=== PATIENT | male | born 1950 | race Caucasian/White ===

== ENCOUNTER 2017-07-31 20:36 | Emergency (ER) | payer OTHER ==
[2017-07-31 20:44] VITALS: BP 147/93; PULSE 56; TEMP 97.7; BMI 31.4
--- NOTE | 2017-07-31 21:01 | PDOC ---
History of Present Illness - General Chief Complaint: Pain, Acute Stated Complaint: PULLED OUT LOWER BACK Time Seen by Provider: 07/31/17 20:38 - History of Present Illness Initial Comments: This 67-year-old man with a history of hypertension well-controlled on medication presents with a one-day history of right lower back pain. Patient has a history of this in the past when he " moves the wrong way". Earlier today , he lifted his right leg as he was in seated position and he began to have pain in the same area of lower back as previously. There is no radiation into the buttock or leg. He denies paresthesias/numbness or weakness in his right leg. No groin numbness or difficulty with urination/defecation. Patient has not taken any oral [id number] medication for this, using topical medications on the area. Past History - Past Medical History Allergies/Adverse Reactions: Allergies Allergy/AdvReac Type Severity Reaction Status Date / Time No Known Allergies Allergy Verified 07/31/17 20:37 Home Medications: Ambulatory Orders Diclofenac Sodium [Voltaren -] 75 mg PO BID PRN #20 tablet. 07/31/17 COPD: No HTN: Yes - Suicide/Smoking/Psychosocial Hx Smoking Status: No Smoking History: Never smoked Have you smoked in the past 12 months: No Number of Cigarettes Smoked Daily: 0 Information on smoking cessation initiated: No Hx Alcohol Use: No Drug/Substance Use Hx: No Substance Use Type: None *Physical Exam - Vital Signs Last Vital Signs Temp Pulse Resp BP Pulse Ox 97.7 F 56 L 16 147/93 100 07/31/17 20:39 07/31/17 20:39 07/31/17 20:39 07/31/17 20:39 07/31/17 20:39 - Physical Exam Comments: GENERAL: Adult male, alert and oriented 3, in no acute distress HEAD: Normal with no signs of trauma. EYES: PERRLA, EOMI, sclera anicteric, conjunctiva clear. ENT: Ears normal, nares patent, oropharynx clear without exudates. Moist mucous membranes. NECK: Normal range of motion, supple without lymphadenopathy, JVD, or masses. LUNGS: Breath sounds equal, clear to auscultation bilaterally. No wheezes, and no crackles. HEART:Regular rate and rhythm, normal S1 and S2 without murmur, rub or gallop. ABDOMEN:.normal bowel sounds No guarding,tenderness or rebound.No masses No distention. EXTREMITIES: Normal range of motion, no edema. No clubbing or cyanosis. No erythema, or tenderness. NEUROLOGICAL: Cranial nerves II through XII grossly intact. Normal speech. No focal neurological deficits. MUSCULOSKELETAL: Back non-tender to palpation, no CVA tenderness SKIN: Warm, Dry, normal turgor, no rashes or lesions noted. *DC/Admit/Observation/Transfer Diagnosis at time of Disposition: Acute low back pain Qualifiers: Back pain laterality: right Sciatica presence: without sciatica Qualified Code( s): M54.5 - Low back pain - Discharge Dispostion Disposition: HOME Condition at time of disposition: Stable - Prescriptions Prescriptions: Diclofenac Sodium [Voltaren -] 75 mg PO BID PRN #20 tablet.dr HAGAN Reason: Back Pain - Referrals Referrals: Gerber Whatley MD [Staff Physician] - - Patient Instructions Printed Discharge Instructions: Low Back Pain Additional Instructions: Avoid strenuous exercise involving lower back for the next several days Diclofenac 75 mg twice a day (take with food) as needed for back pain Follow-up with within 3-4 days Return to ER if you have lower leg pain/numbness/weakness - Post Discharge Activity
[2017-07-31] MEDS ORDERED: KETOROLAC TROMETHAMINE 60 MG/2 ML VIAL IM ONE (21:55)
[2017-07-31] MEDS ORDERED: KETOROLAC TROMETHAMINE 60 MG/2 ML VIAL ONE (22:17)
== END 2017-07-31 22:32 | disposition home or self-care (01) ==
LOC: FER 20:36
PROC: 3E0233Z Introduction of Anti-inflammatory into Muscle, Percutaneous Approach (ICD-10-PCS; principal; 2017-07-31)
DX: M54.5 Low back pain (principal); I10 Essential (primary) hypertension
CPT/HCPCS: 99281-25

== ENCOUNTER 2018-08-11 13:40 | Emergency (ER) | payer OTHER ==
[2018-08-11 13:58] VITALS: BP 130/87; PULSE 51; TEMP 98.7; BMI 31.7
--- NOTE | 2018-08-11 14:17 | PDOC ---
History of Present Illness - General Chief Complaint: Back Pain Stated Complaint: LOW BACK PAIN Time Seen by Provider: 08/11/18 14:02 History Source: Patient Exam Limitations: No Limitations - History of Present Illness Initial Comments: 08/11/18 14:07 68 yo M presenting to the ER with a complaint of back pain Pt has a h/o HTN for which he takes Pt reports that 2 days ago, he lifted something heavy and immediately noted back pain Since then he has noted persistent lower back pain - midline and paraspinal No fevers, chills, night sweats No radicular pain No lower extremity weakness Denies h/o cancer Denies bowel or bladder incontinence PMH: HTN PSH: denies MEDS: Amlodipine 2.5mg po daily ALL: NKDA SOCIAL: denies alcohol, drug, cigarette use ROS: GENERAL/CONSTITUTIONAL: No: fever, chills, weakness HEAD, EYES, EARS, NOSE AND THROAT: No: change in vision CARDIOVASCULAR: No: chest pain, lightheadedness RESPIRATORY: No: cough, shortness of breath, wheezing GASTROINTESTINAL: No: nausea, vomiting, abdominal pain GENITOURINARY: No: dysuria, hematuria, frequency, urgency, flank pain. MUSCULOSKELETAL: Yes: midline back pain No: neck pain, joint pain, muscle swelling or pain SKIN: No: lesions, pallor, rash NEUROLOGIC: No: headache, vertigo, paresthesias, weakness PE: GENERAL: The patient is in no acute distress. HEAD: Normal with no signs of trauma. EYES: PERRLA, EOMI, sclera anicteric, conjunctiva clear. ENT: Ears normal, nares patent, oropharynx clear without exudates. Moist mucous membranes. NECK: Normal range of motion, supple without midline tenderness LUNGS: Breath sounds equal, clear to auscultation bilaterally. No wheezes, and no crackles. HEART:Regular rate and rhythm, normal S1 and S2 without murmur, rub or gallop. ABDOMEN: Soft, nontender, normoactive bowel sounds. No guarding, no rebound. No distention, no pulsatile masses noted EXTREMITIES: Normal range of motion, no edema. NEUROLOGICAL: Cranial nerves II through XII grossly intact. Normal speech. No focal neurological deficits. MUSCULOSKELETAL: Midline lumbar tenderness, paraspinal tenderness to palpation Pt is able to bend forward, ambulatory with a steady, non antalgiac gait (+) straight leg raise Flexion at the hip, knee nml Extension at the hip and knee nml Dorsi and plantar flexion in tact Sensation intact SKIN: Warm, Dry, normal turgor, no rashes or lesions noted. 08/11/18 14:26 08/11/18 14:27 Past History - Past Medical History Allergies/Adverse Reactions: Allergies Allergy/AdvReac Type Severity Reaction Status Date / Time No Known Allergies Allergy Verified 08/11/18 13:53 Home Medications: Ambulatory Orders Amlodipine Besylate 2.5 mg PO DAILY 08/11/18 Methocarbamol [Robaxin -] 500 mg PO TID PRN #21 tablet 08/11/18 Naproxen [Naprosyn -] 500 mg PO BID PRN #14 tablet 08/11/18 COPD: No HTN: Yes - Suicide/Smoking/Psychosocial Hx Smoking Status: No Smoking History: Never smoked Have you smoked in the past 12 months: No Number of Cigarettes Smoked Daily: 0 Hx Alcohol Use: No Drug/Substance Use Hx: No Substance Use Type: None *Physical Exam - Vital Signs Last Vital Signs Temp Pulse Resp BP Pulse Ox 98.7 F 51 L 16 130/87 98 08/11/18 13:48 08/11/18 13:48 08/11/18 13:48 08/11/18 13:48 08/11/18 13:48 Moderate Sedation - Procedure Monitoring Vital Signs: Procedure Monitoring Vital Signs Temperature 98.7 F 08/11/18 13:48 Pulse Rate 51 L 08/11/18 13:48 Respiratory Rate 16 08/11/18 13:48 Blood Pressure 130/87 08/11/18 13:48 O2 Sat by Pulse Oximetry (%) 98 08/11/18 13:48 Medical Decision Making - Medical Decision Making 08/11/18 14:31 Pt presents which what appears to be musculoskeletal back pain Pt has no high risk factors - IVDU, Fevers, Gross hematuria, abdominal pain, trauma, h/o cancer Pt is tender in the midline lower back (just above the sacrum) and in the para spinal muscles Pt states this has happened to him in the past We have discussed my concern for aortic pathology (pt not previously imaged) Pt would like to be discharged to home I have asked this patient to follow up with Dr Whatley within 1 week for further imaging *DC/Admit/Observation/Transfer Diagnosis at time of Disposition: Acute low back pain Qualifiers: Back pain laterality: bilateral Sciatica presence: without sciatica Qualified Code(s): M54.5 - Low back pain - Discharge Dispostion Disposition: HOME Condition at time of disposition: Stable Decision to Admit order: No - Referrals Referrals: Gerber Whatley MD [Primary Care Provider] - - Patient Instructions Printed Discharge Instructions: DI for Low Back Pain, Low Back Pain, Back Pain (Alternative Therapy) Additional Instructions: Thank you for coming in to the ER today Return to the emergency department immediately with ANY new, persistent or worsening symptoms. Please AVOID lifting heavy objects Continue any medications as previously prescribed by your physician. Please take medications as prescribed. You should follow up with your primary doctor as soon as possible regarding today's emergency department visit. Please make sure your doctor reviews the results of your emergency evaluation. Thank you for coming to the [facility] today for your care. It was a pleasure to see you today. Please note that your evaluation is INCOMPLETE until you follow-up with your doctor. - Post Discharge Activity
[2018-08-11] MEDS ORDERED: KETOROLAC TROMETHAMINE 30 MG/1 ML VIAL IM ONE (14:19)
[2018-08-11] MEDS ORDERED: KETOROLAC TROMETHAMINE 30 MG/1 ML VIAL ONE (14:28)
== END 2018-08-11 14:50 | disposition home or self-care (01) ==
LOC: FER 13:40
PROC: 3E0233Z Introduction of Anti-inflammatory into Muscle, Percutaneous Approach (ICD-10-PCS; principal; 2018-08-11)
DX: M54.5 Low back pain (principal); I10 Essential (primary) hypertension
CPT/HCPCS: 99282-25

== ENCOUNTER 2019-02-21 19:51 | Emergency (ER) | payer OTHER ==
[2019-02-21 20:02] VITALS: BP 114/72; PULSE 52; TEMP 98.5; BMI 31.4
[2019-02-21] MEDS ORDERED: KETOROLAC TROMETHAMINE 60 MG/2 ML VIAL IM ONE (20:31)
[2019-02-21] MEDS ORDERED: KETOROLAC TROMETHAMINE 60 MG/2 ML VIAL ONE (20:35)
[2019-02-21] MEDS ORDERED: ERYTHROMYCIN 0.5% OPHTHALMIC OINTMENT 3.5 GM TUBE OD ONE (20:35)
[2019-02-21] MEDS ORDERED: ERYTHROMYCIN 0.5% OPHTHALMIC OINTMENT 3.5 GM TUBE ONE (20:39)
--- NOTE | 2019-02-21 20:40 | PDOC ---
Documentation entered by Lai Lopes SCRIBE, acting as scribe for Jil Fernandez MD. Jil Fernandez MD: This documentation has been prepared by the Moses schmidt Aiswarya, SCRIBE, under my direction and personally reviewed by me in its entirety. I confirm that the documentation accurately reflects all work, treatment, procedures, and medical decision making performed by me. History of Present Illness - General Chief Complaint: Back Pain Stated Complaint: BACK PAIN Time Seen by Provider: 02/21/19 20:14 History Source: Patient Exam Limitations: No Limitations - History of Present Illness Initial Comments: 02/21/19 20:35 The patient is a 69 year old male, with a significant PMH of HTN, who presents to the emergency department with back pain that began 6 days ago. The patient states constant non radiating pain began after taking out the trash a few days ago. Patient states pain progressively worsened today , no relief with ice. Patient denies any numbness or tingling. Denies any shooting pain of the lower extremities. Denies any other injuries. Denies any fall. Denies chest pain, shortness of breath, headache and dizziness. PAST MEDICAL HISTORY: no significant history PAST SURGICAL HISTORY: no significant history FAMILY HISTORY: no pertinent history SOCIAL HISTORY: Pt lives with family and is employed. MEDICATIONS: reviewed ALLERGIES: As per nursing notes Adult ROS General: No fevers or chills, no weakness, no weight loss HEENT: No change in vision. No sore throat,. No ear pain CardioVascular: No chest pain or shortness of breath Respiratory:No cough, or wheezing. Gastrointestinal: no nausea, vomiting, diarrhea or constipation, No rectal bleeding Genitourinary: No dysuria, hematuria, or frequency Musculoskeletal:+Back pain. Neurologic: No headache, vertigo, dizziness or loss of consciousness Psychiatric: nor depression Skin: No rashes or easy bruising Endocrine: no increased thirst or abnormal weight change Allergic: no skin or latex allergy All other systems reviewed and normal Basic PE GENERAL: The patient is awake, alert, and fully oriented, in no acute distress. HEAD: Normal with no signs of trauma. EYES: Pupils equal, round and reactive to light, extraocular movements intact, sclera anicteric, conjunctiva clear. EXTREMITIES: +Tenderness on palpation right lateral upper paraspinal lumbar area. No tenderness to the lumbar sacral spine. Normal range of motion, no edema. NEUROLOGICAL: Normal speech, normal gait. PSYCH: Normal mood, normal affect. SKIN: Warm, Dry, normal turgor, no rashes or lesions noted. Assessment and plan: This is a 69-year-old male who comes in complaining of low back pain. Patient has history of low back pain in the past. Patient denies any radiation or any other associated symptoms numbness weakness or neurological complaints. Patient did have some tenderness of paraspinal spasm of his lower lumbar right area. There was no tenderness over the sciatic notch. Patient given Toradol and a prescription for naproxen sent to his pharmacy. Patient has a primary care doctor he can follow-up with. 02/21/19 20:40 Past History - Past Medical History Allergies/Adverse Reactions: Allergies Allergy/AdvReac Type Severity Reaction Status Date / Time No Known Allergies Allergy Verified 02/21/19 19:58 Home Medications: Ambulatory Orders Amlodipine Besylate 2.5 mg PO DAILY 08/11/18 Naproxen 500 mg PO BID #20 tablet 02/21/19 COPD: No HTN: Yes - Suicide/Smoking/Psychosocial Hx Smoking Status: No Smoking History: Never smoked Have you smoked in the past 12 months: No Number of Cigarettes Smoked Daily: 0 Hx Alcohol Use: No Drug/Substance Use Hx: No Substance Use Type: None *Physical Exam - Vital Signs Last Vital Signs Temp Pulse Resp BP Pulse Ox 98.5 F 52 L 16 114/72 97 02/21/19 19:57 02/21/19 19:57 02/21/19 19:57 02/21/19 19:57 02/21/19 19:57 *DC/Admit/Observation/Transfer Diagnosis at time of Disposition: Low back pain Qualifiers: Chronicity: acute Back pain laterality: right Sciatica presence: without sciatica Qualified Code(s): M54.5 - Low back pain Hordeolum Qualifiers: Hordeolum type: internum Laterality: right Eyelid: lower Qualified Code(s): H00.022 - Hordeolum internum right lower eyelid - Discharge Dispostion Disposition: HOME Condition at time of disposition: Good Decision to Admit order: No - Prescriptions Prescriptions: Naproxen 500 mg PO BID #20 tablet - Referrals Referrals: Gerber Whatley MD [Primary Care Provider] - - Patient Instructions Printed Discharge Instructions: DI for Blepharitis Additional Instructions: If you need some additional medication beyond the shot that we gave you get the prescription filled at the pharmacy and take one tablet twice a day with food don't take on an empty stomach. For the stye place 1/2 inch ribbon of the antibiotic ointment in the lower lid twice a day for 7 days. Return to the emergency department immediately with ANY new, persistent or worsening symptoms. Continue any medications as previously prescribed by your physician. You should follow up with your primary doctor as soon as possible regarding today's emergency department visit. . Please make sure your doctor reviews the results of your emergency evaluation. Thank you for coming to the Emergency Department today for your care. It was a pleasure to see you today. Please note that your evaluation is INCOMPLETE until you follow-up with your doctor. - Post Discharge Activity
== END 2019-02-21 20:47 | disposition home or self-care (01) ==
LOC: FER 19:51
PROC: 3E0233Z Introduction of Anti-inflammatory into Muscle, Percutaneous Approach (ICD-10-PCS; principal; 2019-02-21)
DX: M54.5 Low back pain (principal); H00.022 Hordeolum internum right lower eyelid; I10 Essential (primary) hypertension
CPT/HCPCS: 99282-25

== ENCOUNTER 2020-02-07 04:48 | Inpatient (IN) | payer OTHER ==
[2020-02-06 12:28] VITALS: BMI 27.8
[2020-02-07] MEDS ORDERED: MIDAZOLAM HCL 2 MG/2 ML SINGLE DOSE VIAL ONE ×2 (10:26→12:42)
[2020-02-07] MEDS ORDERED: PROPOFOL 20 ML ONE (10:26)
[2020-02-07] MEDS ORDERED: ceFAZolin SODIUM 1 GM VIAL IVPB ONE (11:07)
[2020-02-07] MEDS ORDERED: ceFAZolin SODIUM 1 GM VIAL ONE (11:11)
[2020-02-07] MEDS ORDERED: ONDANSETRON 4 MG/2 ML VIAL IVPUSH PRN (11:36)
[2020-02-07] MEDS ORDERED: oxyCODONE HCL 5 MG TABLET PO PRN (11:36)
[2020-02-07] MEDS ORDERED: LACTATED RINGERS SOLUTION 1,000 ML IV SCH (11:45)
[2020-02-07] MEDS ORDERED: DEXAMETHASONE SOD PHOSPHATE 4 MG/1 ML VIAL ONE (12:11)
[2020-02-07] MEDS ORDERED: ACETAMINOPHEN 325 MG TABLET (FP) PO PRN (12:37)
[2020-02-07] MEDS ORDERED: HYDROmorphone HCl 2 MG/ML VIAL IM ONE (12:37)
[2020-02-07] MEDS ORDERED: TAMSULOSIN HCL 0.4 MG CAP PO ONE (12:37)
--- NOTE | 2020-02-07 12:41 | PREOP ---
DATE OF ADMISSION: 02/07/2020 DATE OF DICTATION: 02/07/2020 Patient is a 70-year-old male diagnosed with a Judith 8 carcinoma of the prostate. Also has history of prostatism, including frequency, urgency, and nocturia. Cystoscopy in the office revealed bilobar hypertrophy of the prostate with a large bladder stone. He does have history of high blood pressure. PHYSICAL EXAMINATION: Revealed a soft abdomen. There is no CVA tenderness. Prostate is 3+, firm, and nontender. Extremities show full range of motion with no cyanosis, clubbing, or edema. IMPRESSION: At present is benign prostatic hypertrophy with lower urinary tract infection, history of carcinoma of the prostate, bladder stone. PLAN: For a TURP, a cystolithotripsy, followed by external beam radiation therapy. LORNE FRASER M.D. [id number]
--- NOTE | 2020-02-07 12:43 | OP ---
Operative Note - Note: Operative Date: 02/07/20 Pre-Operative Diagnosis: bladder stone, bph with luts and Operation: cystilithotripsy and turp Findings: 2cm. bladder stone, bph with obstruction Post-Operative Diagnosis: Same as Pre-op Surgeon: Dany Whatley Anesthesia: General Specimens Removed: prostate tissue, stones ,prostate Estimated Blood Loss (mls): 0 Instrument used (Debridements only): 0 Drains & Tubes with Location: 24f 30cc 3-way daniel with cbi Drains, Volume Out (mls): 0 Blood Volume Replaced (mls): 0 Fluid Volume Replaced (mls): 0 Operative Report Dictated: Yes
[2020-02-07] MEDS: DEXTROSE 5%-0.45% SALINE 1,000 ML IV SCH (16:30)
--- NOTE | 2020-02-07 17:05 | PATH ---
Cytology Non-Gynecological Report Patient Name: MIKE BOSS [facility]. Rec. #: [id number] /Age/Gender: 1950 (Age: 70) / M Account: [id number] Location: AMBULATORY SURG Taken: 02/07/2020 Received: 02/07/2020 Reported: 02/07/2020 Physicians: Dany Whatley M.D. Specimen(s) Received URINE Clinical History Bladder stones Final Diagnosis URINE FOR CYTOLOGY: SATISFACTORY FOR EVALUATION. NEGATIVE FOR HIGH GRADE UROTHELIAL CARCINOMA. SCATTERED UROTHELIAL CELLS AND FEW UROTHELIAL FRAGMENTS PRESENT. Comment: Urothelial fragments are suggestive of prior instrumentation, lithiasis, or a low grade papillary neoplasm. Suggest clinical/radiologic correlation. Electronically Signed Livier Damon M.D. Gross Description Approximately 30 cc of cloudy bloody fluid received fresh. One cytofunnel prepared and Pap stained.
--- NOTE | 2020-02-07 18:32 | OP ---
DATE OF OPERATION: DATE OF DICTATION: 02/07/2020 HISTORY OF PRESENT ILLNESS: The patient is a 70-year-old male with history of recurrent urinary retention and obstructive uropathy status post cystoscopy, found to have a large bladder stone with trilobar hypertrophy of the prostate. PREOPERATIVE DIAGNOSIS: Bladder stone and trilobar hypertrophy of the prostate. POSTOPERATIVE DIAGNOSIS: Bladder stone and trilobar hypertrophy of the prostate. OPERATIVE PROCEDURE: Cystourethroscopy, cysto laser lithotripsy, transurethral resection of prostate and transurethral vaporization of prostate. ANESTHESIA: General. BLOOD LOSS: 100 mL. DESCRIPTION OF PROCEDURE: Under above stated anesthesia, patient was prepped and draped in the usual sterile manner, placed in the dorsal lithotomy position. A Barney catheter which was in place was removed. Cystoscopy revealed trilobar hypertrophy of the prostate. There was lateral lobe kissing. The bladder was entered. There was a grade 3 trabeculation. A 2-cm stone was seen in the bladder. Therefore 1000 holmium fiber at an energy of 1 and a rate of 12 was used to fragment the stone. A Ellik evacuator was used to get rid of all the fragments. Afterwards, resection of the prostate was commenced in the usual fashion. Hemostasis was secured with electrocoagulation. Prostate chips were evacuated with an Ellik evacuator. No active bleeding was noted. The VaporTrode was introduced, and excess tissue was vaporized. Due to the large prostate and the bleeding, a 3-way Barney with bladder irrigation was commenced. The patient tolerated the procedure well. He returned to the recovery room in stable condition. Jennifer [id number]
[2020-02-07] MEDS: CEPHALEXIN MONOHYDRATE 500 MG CAPSULE (UD) PO SCH (21:52)
[2020-02-08] MEDS: CEPHALEXIN MONOHYDRATE 500 MG CAPSULE (UD) PO SCH ×3 (05:22→21:24)
[2020-02-08] MEDS ORDERED: PT OWN MED DRAWER 7, Y5N ONE (10:13)
[2020-02-08] MEDS: TAMSULOSIN HCL 0.4 MG CAP PO SCH (10:16)
[2020-02-08] MEDS: DEXTROSE 5%-0.45% SALINE 1,000 ML IV SCH (14:01)
[2020-02-09] MEDS: DEXTROSE 5%-0.45% SALINE 1,000 ML IV SCH ×2 (00:03→15:59)
[2020-02-09] MEDS: CEPHALEXIN MONOHYDRATE 500 MG CAPSULE (UD) PO SCH ×3 (06:37→21:38)
[2020-02-09 08:22] LABS: HEMATOCRIT 34.2 % (35.4-49); HEMOGLOBIN 11.7 GM/dL (11.7-16.9); MCH 32.3 pg (25.7-33.7); MCHC 34.3 g/dl (32.0-35.9); MEAN CELL VOLUME 94.1 fl (80-96); PLATELET COUNT 242 K/MM3 (134-434); RBC 3.63 M/mm3 (4.00-5.60); RDW 13.4 % (11.9-15.9); WHITE BLOOD COUNT 10.2 K/mm3 (4.0-10.0)
[2020-02-09 08:39] LABS: ALBUMIN 2.6 g/dl (3.4-5.0); BILIRUBIN,TOTAL 0.6 mg/dL (0.2-1); BLOOD UREA NITROGEN 12.6 mg/dL (7-18); CALCIUM 7.8 mg/dL (8.5-10.1); CREATININE 0.8 mg/dL (0.55-1.3); POTASSIUM 3.3 mmol/L (3.5-5.1)
[2020-02-09 08:40] LABS: TOT PROT 5.6 g/dl (6.4-8.2)
[2020-02-09] MEDS: TAMSULOSIN HCL 0.4 MG CAP PO SCH (12:37)
--- NOTE | 2020-02-09 20:09 | PN ---
Progress Note (short form) - Note Progress Note: UROLOGY NOTE. POD#3 S/P TURP/TUVP, SPENCER WITH CBI IS CLEAR,NO CLOTS. PLAN-D/C CBI IN AM AND ATTACH SPENCER TO LEG BAG.
[2020-02-10] MEDS: CEPHALEXIN MONOHYDRATE 500 MG CAPSULE (UD) PO SCH ×2 (05:17→14:11)
[2020-02-10] MEDS: TAMSULOSIN HCL 0.4 MG CAP PO SCH (08:43)
[2020-02-10] MEDS: DEXTROSE 5%-0.45% SALINE 1,000 ML IV SCH (13:00)
[2020-02-11] MEDS: TAMSULOSIN HCL 0.4 MG CAP PO SCH (09:16)
--- NOTE | 2020-02-11 10:04 | PN ---
Progress Note (short form) - Note Progress Note: UROLOGY NPTE. BUN/CREAT.=29/0.8, WBC=10,000, TMAX=97.4, S/P TURP/CYSTO LASERLITHOTRIPSY, SPENCER IS CLEAR,NO CLOTS PLAN-D/C SPENCER TOV, ^PO FLUIDS, CLEARED FOR DISCHARGE
[2020-02-11 10:41] VITALS: TEMP 98.1
[2020-02-11] MEDS ORDERED: BISACODYL 10 MG SUPP.RECT PR ONE ×2 (14:45→16:30)
[2020-02-11] MEDS: DEXTROSE 5%-0.45% SALINE 1,000 ML IV SCH (15:10)
[2020-02-11 15:23] VITALS: BP 138/80; PULSE 60
[2020-02-11] MEDS ORDERED: MAGNESIUM HYDROX 2400MG/30ML ORAL SUSPENSION 30 ML CUP PO SCH (22:00)
--- NOTE | 2020-02-12 13:12 | PATH ---
Surgical Pathology Report Patient Name: MIKE BOSS Med. Rec. #: [id number] /Age/Gender: 1950 (Age: 70) / M Account: [id number] Location: [facility] MED/SURG Taken: 02/07/2020 Received: 02/10/2020 Reported: 02/12/2020 Physicians: Dany Whatley M.D. Specimen(s) Received A: URINARY BLADDER STONES B: PROSTATE CHIPS Clinical History Hypertrophy of prostate, bladder stones Final Diagnosis A. URINARY BLADDER STONES, REMOVAL: CONSISTENT WITH CALCULI. SENT FOR CHEMICAL ANALYSIS. B. PROSTATE CHIPS, TRANSURETHRAL RESECTION OF THE PROSTATE: BENIGN PROSTATIC TISSUE WITH GLANDULAR AND STROMAL HYPERPLASIA, ACUTE AND CHRONIC PROSTATITIS. 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 Electronically Signed Tawana Mccord M.D. Gross Description A. Received fresh labeled "urinary bladder stones," is a 0.8 x 0.5 x 0.2 cm aggregate of blunt-brown, irregular to fragmented calculi. The specimen is sent for chemical analysis. B. Received in formalin labeled "prostate chips," is an 8 g, 5.5 x 5.0 x 0.4 cm aggregate of blunt, firm to rubbery portions of tissue, consistent with prostate chips. The specimen is entirely submitted in a cassette. 02/10/2020 [facility]02/10/2020
[2020-02-23 14:48] LABS: SIZE 3X2 mm; WEIGHT 34 mg
== END 2020-02-11 17:06 | disposition home or self-care (01) | DRG 714 ==
LOC: JASU-SURG 04:48 → JASUSAT 04:48 → J8W 18:19 → JASUSAT 18:20 → J8W 02-08 15:36
PROVIDERS: ADMIT Urology; ATTEND Urology
PROC: 0VT08ZZ Resection of Prostate, Via Natural or Artificial Opening Endoscopic (ICD-10-PCS; principal; 2020-02-07 10:00)
PROC: 0TCB8ZZ Extirpation of Matter from Bladder, Via Natural or Artificial Opening Endoscopic (ICD-10-PCS; 2020-02-07 10:00)
DX: N40.1 Benign prostatic hyperplasia with lower urinary tract symptoms (principal); R33.9 Retention of urine, unspecified; N21.0 Calculus in bladder; N41.0 Acute prostatitis; N41.1 Chronic prostatitis
CPT/HCPCS: 36415; 80053; 82360; 85027; 87086; 88108; 88300-TC; 88305-TC; 94760

== ENCOUNTER 2023-03-23 10:44 | Emergency (ER) | payer OTHER ==
[2023-03-23] MEDS ORDERED: ACETAMINOPHEN 1000 MG/100 ML BAG IVPB ONE (10:58)
[2023-03-23] MEDS ORDERED: SODIUM CHLORIDE 0.9% 1000 ML INFUS.BAG IV ONE ×2 (10:58→11:54)
[2023-03-23] MEDS ORDERED: ACETAMINOPHEN INJECTION 100 ML IVPB ONE (11:28)
[2023-03-23 11:50] VITALS: RESP 18; BMI 27.7
[2023-03-23 12:00] LABS: INR 1.07 (0.83-1.09); PROTHROMBIN TIME (PATIENT) 12.4 SEC (9.7-13.0)
[2023-03-23 12:01] LABS: HEMOGLOBIN 15.5 G/dL (11.7-16.9); MCH 31.7 pg (25.7-33.7); MCHC 33.8 g/dl (32.0-35.9); MEAN CELL VOLUME 93.9 fl (80-96); MEAN PLT VOLUME 6.8 fl (7.5-11.1); PLATELET COUNT 207.7 10^3/uL (134-434); WHITE BLOOD COUNT 6.5 10^3/uL (4.0-10.8)
[2023-03-23 12:03] LABS: ACTIVATED PTT 31.5 SECONDS (25.2-36.5)
[2023-03-23 12:12] LABS: ALBUMIN 4.2 g/dl (3.4-5.0); BILIRUBIN,TOTAL 1.4 mg/dl (0.2-1); BLOOD UREA NITROGEN 22.9 mg/dl (7-18); CALCIUM 8.8 mg/dl (8.5-10.1); CREATININE 1.2 mg/dl (0.6-1.3); POTASSIUM 3.1 mmol/L (3.5-5.1); SGOT/AST 17.4 U/L (15-37); SGPT/ALT 29.1 U/L (7-52); TOT PROT 7.3 g/dl (6.4-8.2)
[2023-03-23 12:49] LABS: MAGNESIUM 2.2 mg/dL (1.8-2.4)
[2023-03-23] MEDS ORDERED: POTASSIUM CHLORIDE ORAL LIQUID 20 MEQ/15 ML PO ONE (13:10)
[2023-03-23 13:16] LABS: PLATELET ESTIMATE ADEQUATE
[2023-03-23 13:37] LABS: EPITHELIAL CELLS RARE /hpf
[2023-03-23] MEDS ORDERED: POTASSIUM CHLORIDE TABS 20 MEQ TABLET.ER (FP) PO ONE (13:48)
[2023-03-23] MEDS ORDERED: KCL 10 MEQ IVPB 20 MEQ/200 ML INFUS.BAG IVPB ONE (13:48)
[2023-03-23] MEDS ORDERED: CEFTRIAXONE 1 GM in DEXTROSE 5%-WATER - 100 ML IVPB ONE (13:49)
[2023-03-23] MEDS ORDERED: cefTRIAXone SODIUM 1 GM VIAL ONE (15:15)
[2023-03-23 15:44] VITALS: BP 122/72; PULSE 76; TEMP 98.8
== END 2023-03-23 15:48 | disposition home or self-care (01) ==
LOC: FER 10:44
PROC: 3E03329 Introduction of Other Anti-infective into Peripheral Vein, Percutaneous Approach (ICD-10-PCS; principal; 2023-03-23)
PROC: 3E033GC Introduction of Other Therapeutic Substance into Peripheral Vein, Percutaneous Approach (ICD-10-PCS; 2023-03-23)
PROC: 3E033NZ Introduction of Analgesics, Hypnotics, Sedatives into Peripheral Vein, Percutaneous Approach (ICD-10-PCS; 2023-03-23)
DX: R50.9 Fever, unspecified (principal); R53.1 Weakness; N39.0 Urinary tract infection, site not specified; Z20.822 Contact with and (suspected) exposure to COVID-19
CPT/HCPCS: 0241U-QW; 36415; 71045-TC-FY; 80053; 81003; 81015; 83605; 83735; 85027; 85610; 85730; 87086; 87186; 93005; 99285-25

== ENCOUNTER 2023-07-25 08:51 | Emergency (ER) | payer OTHER ==
[2023-07-25] MEDS ORDERED: HYDROmorphone HCL/PF 1 MG/ML VIAL ONE ×2 (09:17→10:48)
[2023-07-25 09:21] VITALS: BP 197/87; PULSE 68; RESP 16; TEMP 98.1; BMI 29.7
[2023-07-25] MEDS: HYDROmorphone HCl 2 MG/ML VIAL IVPUSH ONE ×2 (09:39→11:20)
[2023-07-25] MEDS ORDERED: LIDOCAINE HCL 2% JELLY 10 ML CARTRIDGE ONE (10:58)
[2023-07-25 11:15] LABS: HEMATOCRIT 47.6 % (35.4-49); HEMOGLOBIN 15.9 G/dL (11.7-16.9); MCH 31.4 pg (25.7-33.7); MCHC 33.3 g/dl (32.0-35.9); MEAN CELL VOLUME 94.2 fl (80-96); MEAN PLT VOLUME 6.7 fl (7.5-11.1); RBC 5.05 10^6/uL (4.00-5.60); RDW 14.2 % (11.9-15.9); WHITE BLOOD COUNT 11.5 10^3/uL (4.0-10.8)
[2023-07-25] MEDS ORDERED: cefTRIAXone SODIUM 1 GM VIAL ONE (11:15)
[2023-07-25 11:16] LABS: PLATELET COUNT 246.3 10^3/uL (134-434)
[2023-07-25] MEDS: CEFTRIAXONE 1 GM in DEXTROSE 5%-WATER - 100 ML IVPB ONE (11:21)
[2023-07-25 11:23] LABS: INR 1.01 (0.83-1.09); PROTHROMBIN TIME (PATIENT) 11.7 SEC (9.7-13.0)
[2023-07-25 11:47] LABS: ALBUMIN 4.2 g/dl (3.4-5.0); BILIRUBIN,TOTAL 0.7 mg/dl (0.2-1); CALCIUM 9.5 mg/dl (8.5-10.1); CREATININE 0.7 mg/dl (0.6-1.3); POTASSIUM 3.2 mmol/L (3.5-5.1); TOT PROT 7.2 g/dl (6.4-8.2)
== END 2023-07-25 14:08 | disposition home or self-care (01) ==
LOC: FER 08:51
PROC: 3E03329 Introduction of Other Anti-infective into Peripheral Vein, Percutaneous Approach (ICD-10-PCS; principal; 2023-07-25)
PROC: 3E033GC Introduction of Other Therapeutic Substance into Peripheral Vein, Percutaneous Approach (ICD-10-PCS; 2023-07-25)
DX: N13.9 Obstructive and reflux uropathy, unspecified (principal); R33.9 Retention of urine, unspecified
CPT/HCPCS: 36415; 80053; 81003; 81015; 85027; 85610; 86850; 86900; 86901; 87086; 96365; 96374; 99284-25

== ENCOUNTER 2024-09-25 14:23 | Observation (INO) | payer MEDICARE, OTHER ==
[2024-09-25 14:31] VITALS: RESP 18
[2024-09-25] MEDS ORDERED: ONDANSETRON 4 MG/2 ML VIAL ONE (15:07)
[2024-09-25] MEDS ORDERED: ACETAMINOPHEN INJECTION 100 ML ONE (15:07)
[2024-09-25] MEDS: SODIUM CHLORIDE 0.9% 500 ML INFUS.BAG IV ONE (15:38)
[2024-09-25] MEDS: ACETAMINOPHEN 1000 MG/100 ML BAG IVPB ONE (15:38)
[2024-09-25] MEDS: ONDANSETRON 4 MG/2 ML VIAL IVPUSH ONE (15:38)
[2024-09-25 15:53] LABS: HEMATOCRIT 41.6 % (40.1-51.0); HEMOGLOBIN 13.8 g/dL (13.7-17.5); MCHC 33.2 g/dl (32.3-36.5); MEAN CELL VOLUME 86.7 fl (79.0-92.2); MEAN PLT VOLUME 8.3 fl (9.4-12.4); PLATELET COUNT 190 x10^3/uL (163-337); RDW 14.5 % (12.2-16.6)
[2024-09-25 15:54] LABS: ALBUMIN 3.7 g/dl (3.4-5.0); BILIRUBIN,TOTAL 1.5 mg/dl (0.2-1); CALCIUM 8.4 mg/dl (8.5-10.1); MAGNESIUM 1.9 mg/dL (1.8-2.4); POTASSIUM 3.3 mmol/L (3.5-5.1); TOT PROT 6.5 g/dl (6.4-8.2)
[2024-09-25 15:57] LABS: EPITHELIAL CELLS 0-5 /hpf
[2024-09-25] MEDS ORDERED: cefTRIAXone SODIUM 1 GM VIAL ONE (17:23)
[2024-09-25] MEDS: CEFTRIAXONE 1 GM in DEXTROSE 5%-WATER - 50 ML IVPB ONE (17:33)
[2024-09-25 18:24] LABS: HCV DIAGNOSTIC IN-HOUSE W/RFLX NON-REACTIVE (NONREACTIVE)
[2024-09-25 18:25] LABS: HIV INTERPRETATION NEGATIVE (NEGATIVE)
[2024-09-25] MEDS ORDERED: ACETAMINOPHEN 325 MG TABLET (FP) PO PRN (22:12)
[2024-09-25] MEDS: POTASSIUM CHLORIDE ORAL LIQUID 20 MEQ/15 ML PO ONE (23:32)
[2024-09-26] MEDS: ACETAMINOPHEN 325 MG TABLET (FP) PO ONE (00:19)
[2024-09-26 01:29] VITALS: BMI 32.1
[2024-09-26 06:36] VITALS: PULSE 68
[2024-09-26 08:28] LABS: HEMATOCRIT 36.3 % (40.1-51.0); HEMOGLOBIN 12.2 g/dL (13.7-17.5); MCHC 33.6 g/dl (32.3-36.5); MEAN CELL VOLUME 87.3 fl (79.0-92.2); MEAN PLT VOLUME 8.9 fl (9.4-12.4); PLATELET COUNT 168 x10^3/uL (163-337); RDW 14.9 % (12.2-16.6)
[2024-09-26] MEDS ORDERED: TAMSULOSIN HCL 0.4 MG CAP PO SCH (08:30)
[2024-09-26 09:02] LABS: CALCIUM 8.1 mg/dl (8.5-10.1); POTASSIUM 3.7 mmol/L (3.5-5.1)
[2024-09-26] MEDS: CEFTRIAXONE 1 GM in DEXTROSE 5%-WATER - 50 ML IVPB SCH (09:23)
[2024-09-26] MEDS ORDERED: EZETIMIBE 10 MG TABLET (FP) PO SCH (10:00)
[2024-09-26] MEDS ORDERED: HYDROCHLOROTHIAZIDE 25 MG TABLET (FP) PO SCH (10:00)
[2024-09-26 10:28] VITALS: BP 126/68; TEMP 98.8
[2024-09-26] MEDS: TAMSULOSIN HCL 0.4 MG CAP PO SCH (11:36)
[2024-09-26] MEDS ORDERED: PATIENT'S OWN MEDICATION (NON-FORMULARY) (Amlodipine/Valsartan [Exforge 10-160 Mg Tablet] PO SCH (22:00)
[2024-09-26] MEDS ORDERED: VALSARTAN 160 MG TABLET PO SCH (22:00)
[2024-09-26] MEDS ORDERED: amLODIPine BESYLATE 10 MG TABLET (FP) PO SCH (22:00)
== END 2024-09-26 11:38 | disposition home or self-care (01) ==
LOC: FER 14:23 → FM/S 17:40
PROC: 3E03329 Introduction of Other Anti-infective into Peripheral Vein, Percutaneous Approach (ICD-10-PCS; principal; 2024-09-25)
PROC: 3E033NZ Introduction of Analgesics, Hypnotics, Sedatives into Peripheral Vein, Percutaneous Approach (ICD-10-PCS; 2024-09-25)
PROC: 3E033GC Introduction of Other Therapeutic Substance into Peripheral Vein, Percutaneous Approach (ICD-10-PCS; 2024-09-25)
PROC: 3E0337Z Introduction of Electrolytic and Water Balance Substance into Peripheral Vein, Percutaneous Approach (ICD-10-PCS; 2024-09-25)
DX: N39.0 Urinary tract infection, site not specified (principal); N40.1 Benign prostatic hyperplasia with lower urinary tract symptoms; I10 Essential (primary) hypertension; E78.5 Hyperlipidemia, unspecified
CPT/HCPCS: 0241U-QW; 36415; 71045-TC-FY; 80048; 80053; 81003; 81015; 83735; 85025; 86803; 87081; 87086; 87186; 87389; 99285-25; G0378; J0131

== ENCOUNTER 2024-10-14 10:57 | Emergency (ER) | payer MEDICARE ==
[2024-10-14] MEDS ORDERED: ACETAMINOPHEN 500 MG TABLET (FP) ONE (11:32)
[2024-10-14] MEDS ORDERED: KETOROLAC TROMETHAMINE 30 MG/1 ML VIAL ONE (11:33)
[2024-10-14] MEDS: KETOROLAC TROMETHAMINE 30 MG/1 ML VIAL IM ONE (11:40)
[2024-10-14] MEDS: ACETAMINOPHEN 325 MG TABLET (FP) PO ONE (11:40)
[2024-10-14 12:08] VITALS: BP 112/73; PULSE 66; RESP 20; TEMP 98.4; BMI 32.0
== END 2024-10-14 12:32 | disposition home or self-care (01) ==
LOC: FER 10:57
PROC: 3E0233Z Introduction of Anti-inflammatory into Muscle, Percutaneous Approach (ICD-10-PCS; principal; 2024-10-14)
DX: M54.50 Low back pain, unspecified (principal); X50.0XXA Overexertion from strenuous movement or load, initial encounter
CPT/HCPCS: 96372; 99284-25